=== PATIENT | female | born 2000 | race Two or more races ===

== ENCOUNTER 2024-01-01 12:35 | Emergency (ER) | payer OTHER ==
[~2024-01-01] VITALS: Ht 167.6 cm; Wt 68.0 kg
[2024-01-01] MEDS ORDERED: 0.9 % SODIUM CHLORIDE 500 ML IV ONE (14:15)
[2024-01-01] MEDS ORDERED: ONDANSETRON HCL 2 MG/ML VIAL IV ONE (14:15)
[2024-01-01] MEDS ORDERED: FAMOTIDINE/PF 20 MG/2 ML VIAL IV ONE (14:15)
[2024-01-01 14:51] LABS: HEMATOCRIT 40.6 % (36.0-45.00); HEMOGLOBIN 14.3 g/dL (12.0-15.00); MEAN CELL VOLUME 90.5 fL (80.00-100.00); MEAN CORPUSCULAR HEMOGLOBIN 31.9 pg (27.00-32.0); MEAN CORPUSCULAR HGB CONC 35.2 g/dl (32.0-36.0); PLATELET COUNT 318 K/uL (150-450); RED BLOOD COUNT 4.48 M/uL (4.00-6.00); RED CELL DISTRIBUTION WIDTH 13.1 % (11.5-14.5)
[2024-01-01 15:55] LABS: ALBUMIN 4.1 gm/dL (3.4-5.0); BILIRUBIN TOTAL 0.74 mg/dL (0.3-1.2); CALCIUM 9.2 mg/dL (8.5-10.1); CREATININE SERUM 0.6 mg/dL (0.55-1.02); GFR 123.88; GLOBULINA 3.5 G/DL (2.4-3.5); POTASSIUM 4.2 mEq/L (3.5-5.1); TOTAL PROTEIN 7.6 gm/dL (6.4-8.2)
[2024-01-01 17:18] LABS: PH,URINE 5.5 (5.0-8.0); URINE APPEARANCE Cloudy; URINE BILIRRUBIN Negative (NEGATIVE); URINE BLOOD Negative; URINE COLOR Yellow; URINE GLUCOSE Negative (NEGATIVE); URINE LEUKOCYTE Trace; URINE NITRATE Negative; URINE PROTEIN 30 (NEGATIVE)
[2024-01-01 17:22] LABS: URINE BACTERIA 7767.5 uL (0.0-1933); URINE EPITHELIAL CELLS 22.7 uL (0.0-38.8); URINE RBC 17.4 uL (0.0-20.8); URINE WBC 125.8 uL (0.0-23.2)
[2024-01-01 18:03] LABS: URINE KETONE >=160 (NEGATIVE)
[2024-01-01 18:05] LABS: URINE YEAST FEW /hpf
[2024-01-01] MEDS ORDERED: MACROBID 100 M100 MG PO (18:28)
[2024-01-01] MEDS ORDERED: ONDANSETRON HCL4 MG PO (18:28)
== END 2024-01-01 19:23 ==
LOC: ER 12:37
PROVIDERS: Nurse Practitioner Family
DX: O23.31 Infections of other parts of urinary tract in pregnancy, first trimester (principal); Z3A.01 Less than 8 weeks gestation of pregnancy; N39.0 Urinary tract infection, site not specified; J45.909 Unspecified asthma, uncomplicated; E16.1 Other hypoglycemia; R11.2 Nausea with vomiting, unspecified; Z20.822 Contact with and (suspected) exposure to COVID-19

== ENCOUNTER 2024-02-05 14:31 | Emergency (ER) | payer OTHER ==
[~2024-02-05] VITALS: Ht 167.6 cm; Wt 68.0 kg
[~2024-02-05 14:31] MED LIST: MACROBID 100 M100 MG PO; ONDANSETRON HCL4 MG PO
[2024-02-05] MEDS ORDERED: PRENATA CHEWAB1 EACH (14:39)
[2024-02-05] MEDS ORDERED: ONDANSETRON HCL 2 MG/ML VIAL IV ONE (16:30)
[2024-02-05] MEDS ORDERED: FAMOtidine 10 MG/ML (4ML VIAL) IV ONE (16:30)
[2024-02-05] MEDS ORDERED: ACETAMINOPHEN 325 MG TABLET PO ONE (16:45)
[2024-02-05] MEDS ORDERED: PEPCID AC20 MG PO (18:27)
[2024-02-05] MEDS ORDERED: ZOFRAN8 MG PO (18:27)
== END 2024-02-05 18:34 | disposition home or self-care (01) ==
LOC: ER 14:33
DX: O21.9 Vomiting of pregnancy, unspecified (principal); Z3A.12 12 weeks gestation of pregnancy

== ENCOUNTER 2024-03-17 21:57 | Emergency (ER) | payer OTHER ==
[~2024-03-17] VITALS: Ht 167.6 cm; Wt 68.9 kg
[~2024-03-17 21:57] MED LIST changes: +PEPCID AC20 MG PO; +PRENATA CHEWAB1 EACH; +ZOFRAN8 MG PO
[2024-03-18] MEDS ORDERED: PROMETHAZINE HCL 25 MG/ML AMPUL IM STA (02:08)
[2024-03-18] MEDS ORDERED: METOCLOPRAMIDE HCL 5 MG/ML VIAL IM STA (02:08)
[2024-03-18] MEDS ORDERED: 0.9 % SODIUM CHLORIDE 1,000 ML IV STA (02:09)
[2024-03-18] MEDS ORDERED: FAMOtidine 10 MG/ML (4ML VIAL) IV PUSH STA (02:10)
[2024-03-18] MEDS ORDERED: PROMETHAZINE HCL 25 MG/ML AMPUL ONE (02:14)
[2024-03-18] MEDS ORDERED: METOCLOPRAMIDE HCL 5 MG/ML VIAL ONE (02:15)
[2024-03-18] MEDS ORDERED: FAMOTIDINE/PF 20 MG/2 ML VIAL ONE (02:15)
[2024-03-18 02:26] LABS: HEMATOCRIT 38.1 % (36.0-45.00); HEMOGLOBIN 13.1 g/dL (12.0-15.00); MEAN CELL VOLUME 92.7 fL (80.00-100.00); MEAN CORPUSCULAR HEMOGLOBIN 31.8 pg (27.00-32.0); MEAN CORPUSCULAR HGB CONC 34.3 g/dl (32.0-36.0); PLATELET COUNT 267 K/uL (150-450); RED BLOOD COUNT 4.11 M/uL (4.00-6.00); RED CELL DISTRIBUTION WIDTH 13.6 % (11.5-14.5)
[2024-03-18 02:56] LABS: CALCIUM 8.9 mg/dL (8.5-10.1); CREATININE SERUM 0.46 mg/dL (0.55-1.02); GFR 168.34; POTASSIUM 3.7 mEq/L (3.5-5.1)
== END 2024-03-18 06:08 | disposition home or self-care (01) ==
LOC: ER 22:00
DX: O21.0 Mild hyperemesis gravidarum (principal); Z3A.17 17 weeks gestation of pregnancy
CPT/HCPCS: 36415; 96365; 96366; 99282; J2250; J7030

== ENCOUNTER 2024-08-16 05:01 | Inpatient (IN) | payer OTHER ==
[~2024-08-16] VITALS: Ht 167.6 cm; Wt 85.3 kg
[2024-08-16] MEDS ORDERED: RINGERS SOLUTION,LACTATED 1,000 ML IV SCH (05:15)
[2024-08-16 05:30] VITALS: BP 109/72
[2024-08-16] MEDS ORDERED: OXYTOCIN 20 UNITS/500ML RL PIGGYBAG IV ONE ×2 (06:15→07:19)
[2024-08-16 06:33] LABS: BASO % 0.4 % (0.1-1.2); EOS # 0.06 (0.04-0.54); EOS % 0.7 % (0.7-7.0); LYMPH # 1.79 (1.18-3.74); LYMPH % 22.2 % (19.3-53.1); MEAN CORPUSCULAR HEMOGLOBIN 30.9 pg (25.6-32.2); MONO # 0.68 (0.24-0.82); MONO % 8.4 % (4.7-12.5); NEUT # 5.44 (1.56-6.13); NEUT % 67.7 % (34.0-71.1); PLATELET COUNT 306 K/uL (163-369); RED BLOOD COUNT 4.21 M/uL (3.93-5.22); RED CELL DISTRIBUTION WIDTH 12.7 % (11.6-14.4)
[2024-08-16 07:13] LABS: INR < 0.93; PARTIAL THROMBOPLASTIN TIME 23.6 SECONDS (22.0-34.0); PROTHROMBIN TIME 9.9 SECONDS (9.0-11.5)
[2024-08-16 07:16] VITALS: BP 110/74
[2024-08-16 07:26] LABS: ALBUMIN 2.9 gm/dL (3.4-5.0); BILIRUBIN TOTAL 0.35 mg/dL (0.3-1.2); CALCIUM 9.1 mg/dL (8.5-10.1); CREATININE SERUM 0.58 mg/dL (0.55-1.02); GFR 127.72; GLOBULINA 3.7 G/DL (2.4-3.5); POTASSIUM 4.34 mEq/L (3.5-5.1); TOTAL PROTEIN 6.6 gm/dL (6.4-8.2)
[2024-08-16] MEDS ORDERED: OXYTOCIN 500 ML IV SCH (08:45)
[2024-08-16 11:15] VITALS: BP 115/80; O2SAT 98
[2024-08-16] MEDS ORDERED: CITRIC ACID/SODIUM CITRATE 30 ML BLIST.PACK PO SCH (14:15)
[2024-08-16] MEDS ORDERED: CEFAZOLIN SODIUM 1,000 MG VIAL IV SCH (14:15)
[2024-08-16 15:40] VITALS: BP 107/72
[2024-08-16] MEDS ORDERED: OXYTOCIN 10 UNITS/ML VIAL ONE (18:36)
[2024-08-16] MEDS ORDERED: ERYTHROMYCIN BASE OPHT 1GM EACH TUBE OP ONE (18:36)
[2024-08-16] MEDS ORDERED: CEFOXITIN SODIUM 2,000 MG VIAL IV ONE (19:40)
[2024-08-16] MEDS ORDERED: METHYLERGONOVINE MALEATE 0.2 MG/ML AMPUL ONE (19:52)
[2024-08-16] MEDS ORDERED: MORPHINE SULFATE 4 MG/ML VIAL IV ONE (22:20)
[2024-08-17] MEDS ORDERED: KETOROLAC TROMETHAMINE 30 MG VIAL ONE (00:45)
[2024-08-17 00:56] LABS: BASO % 0.2 % (0.1-1.2); HEMATOCRIT 38.1 % (34.1-44.9); HEMOGLOBIN 12.8 g/dL (11.2-15.7); LYMPH # 1.04 (1.18-3.74); LYMPH % 8.4 % (19.3-53.1); MEAN CORPUSCULAR HEMOGLOBIN 30.5 pg (25.6-32.2); MONO # 0.63 (0.24-0.82); MONO % 5.1 % (4.7-12.5); NEUT % 86.1 % (34.0-71.1); PLATELET COUNT 293 K/uL (163-369); RED CELL DISTRIBUTION WIDTH 12.7 % (11.6-14.4)
[2024-08-17 01:21] VITALS: BP 114/73
[2024-08-17 07:37] LABS: BASO % 0.2 % (0.1-1.2); HEMATOCRIT 36.2 % (34.1-44.9); HEMOGLOBIN 12.1 g/dL (11.2-15.7); LYMPH # 1.38 (1.18-3.74); LYMPH % 11.3 % (19.3-53.1); MEAN CORPUSCULAR HEMOGLOBIN 30.3 pg (25.6-32.2); MONO # 0.89 (0.24-0.82); MONO % 7.3 % (4.7-12.5); NEUT % 80.9 % (34.0-71.1); PLATELET COUNT 293 K/uL (163-369); RED BLOOD COUNT 3.99 M/uL (3.93-5.22); RED CELL DISTRIBUTION WIDTH 12.7 % (11.6-14.4)
[2024-08-17] MEDS ORDERED: KETOROLAC TROMETHAMINE 10 MG TABLET PO SCH (07:45)
[2024-08-17] MEDS ORDERED: OxyCODONE HCL 5 MG TABLET (ROXICODONE) PO SCH (08:00)
[2024-08-17 08:52] VITALS: BP 108/69
[2024-08-17 16:00] VITALS: BP 105/69
[2024-08-18 01:02] VITALS: BP 105/68
[2024-08-18 09:36] VITALS: BP 109/75
== END 2024-08-18 16:37 | disposition home or self-care (01) | DRG 788 ==
LOC: LDR 05:01 → OB/GYN 05:01 → O/R 19:49 → OB/GYN 21:12
PROVIDERS: Obstetrics & Gynecology; ADMIT Obstetrics & Gynecology Maternal & Fetal Medicine; ATTEND Obstetrics & Gynecology Maternal & Fetal Medicine
PROC: 4A1HXCZ Monitoring of Products of Conception, Cardiac Rate, External Approach (ICD-10-PCS; 2024-08-16)
PROC: 10D00Z1 Extraction of Products of Conception, Low, Open Approach (ICD-10-PCS; principal; 2024-08-16 18:00)
DX: O33.8 Maternal care for disproportion of other origin (principal); Z3A.40 40 weeks gestation of pregnancy; Z37.0 Single live birth